=== PATIENT | male | born 1945 | race Caucasian/White ===

== ENCOUNTER → 2022-07-27 09:34 | Outpatient (CLI) | payer MEDICARE, SELFPAY ==
[2022-07-27 11:13] LABS: Add Manual Diff / Slide Review NO; Basophils Absolute Auto 100 /uL (0-100); Basophils Percent Auto 0.9 % (0-2); Eosinophils Absolute Auto 400 /uL (0-450); Eosinophils Percent Auto 6.8 % (2-4); Hematocrit 44.7 % (41-53); Hemoglobin 15.2 g/dL (13.5-17.5); Lymphocytes Absolute Auto 2000 /uL (1100-4500); Lymphocytes Percent Auto 30.7 % (25-40); Mean Corpuscular Hemoglobin 30.8 PG (26-34); Mean Corpuscular Volume 90.7 fL (80-100); Monocytes Absolute Auto 400 /uL (0-900); Monocytes Percent Auto 6.8 % (3-14); Neutrophils Absolute Auto 3600 /uL (1500-7000); Neutrophils Percent Auto 54.8 % (50-75); Platelet Count 231 X10^3/uL (150-400); Red Blood Cell Count 4.93 X10^6/uL (4.5-5.9); Red Cell Distribution Width 13.6 % (11.6-14.8); White Blood Cell Count 6.5 X10^3/uL (4.5-11.0)
[2022-07-27 11:18] LABS: Creatinine Urine Random 207.4 mg/dL
[2022-07-27 11:24] LABS: Microalbumi Creatinin Ratio Ur 4.8 ug/mg CR (<30)
[2022-07-27 11:37] LABS: Alanine Aminotransferase 25 IU/L (<50); Albumin 4.5 g/dL (3.5-5.0); Albumin Globulin Ratio 1.6 (1.0-2.8); Alkaline Phosphatase 97 U/L (38-126); Aspartate Aminotransferase 36 IU/L (17-59); Bilirubin Total 0.8 mg/dL (0.2-1.3); Blood Urea Nitrogen 15 mg/dL (9-20); Calcium 9.2 mg/dL (8.4-10.2); Carbon Dioxide 29 mmol/L (22-32); Chloride 100 mmol/L (98-107); Cholesterol 172 mg/dL (140-199); Estimated Glomerular Filt Rate > 60 mL/min (>60); Globulin 2.9 g/dL (1.7-4.1); Glucose 91 mg/dL (80-110); HDL Cholesterol 59 mg/dL (40-60); HEMOLYSIS < 15 (0-50); LDL Cholesterol Calculated 97 mg/dL (<100); Potassium 4.6 mmol/L (3.4-5.1); Sodium 140 mmol/L (137-145); Total Protein 7.4 g/dL (6.3-8.2); Triglycerides 80 mg/dL (35-150)
[2022-07-27 11:47] LABS: Vitamin D 25 Hydroxy (D3) 58.4 ng/mL (30.0-100.0)
[2022-07-27 12:02] LABS: Prostate Specific Antigen 1.08 ng/mL (0.10-4.00)
[2022-07-28 11:39] LABS: Triiodothyronine T3 Total 130 ng/dL (71-180)
== END ==
PROVIDERS: PCP Family Medicine; Referring Provider Family Medicine; Visit Provider Family Medicine
DX: Z13.220 Encounter for screening for lipoid disorders (principal); I10 Essential (primary) hypertension; N40.1 Benign prostatic hyperplasia with lower urinary tract symptoms; E05.90 Thyrotoxicosis, unspecified without thyrotoxic crisis or storm; Z79.899 Other long term (current) drug therapy; R00.1 Bradycardia, unspecified; R34 Anuria and oliguria
CPT/HCPCS: 36415; 80053; 80061; 82043; 82306; 82570; 84153; 84443; 84480; 85025

== ENCOUNTER 2022-12-04 10:31 | Day surgery (SDC) | payer MEDICARE, SELFPAY ==
--- NOTE | 2022-12-04 | PATH_ITS ---
[facility] Accession Number: [id number] No. of containers..04 Tissue . 01 Material submitted: . PART A: duodenum - DUODENUM BIOPSY PART B: pylorus - PYLORUS LESION BIOPSY PART C: esophagus, E-G Junction - GE JUNCTION BIOPSY PART D: colon - HEPATIC FLEXURE . 01 Clinical history: . B: R/O H. PYLORI . 01 Diagnosis: A. Duodenum, Biopsy: Duodenal mucosa with focal gastric heterotopia. Negative for intraepithelial lymphocytosis or villous blunting. Negative for dysplasia and malignancy. . B. Stomach, Pylorus Lesion, Biopsy: Acute erosive gastritis with reactive gastropathy. Negative for Helicobacter by immunohistochemistry. Negative for intestinal metaplasia. Negative for dysplasia and malignancy. . C. Gastroesophageal Junction, Biopsy: Squamocolumnar junctional mucosa with no diagnostic abnormality. Negative for intestinal metaplasia. Negative for dysplasia and malignancy. . D. Hepatic Flexure, Biopsy: Tubular adenoma. [facility] 12/10/2022 1645 Local . 01 Electronically signed: . Breanna Rodriguez MD, Pathologist NPI- [id number] . 01 Gross description: . Part A: DUODENUM BIOPSY: Received in formalin is 1 fragment(s) of muhammad, soft tissue measuring 0.2 x 0.2 x 0.1 cm submitted entirely in 1 cassette(s) Part B: PYLORUS LESION BIOPSY: Received in formalin is 1 fragment(s) of muhammad, soft tissue measuring 0.6 x 0.2 x 0.1 cm submitted entirely in 1 cassette(s) Part C: GE JUNCTION BIOPSY: Received in formalin is 1 fragment(s) of muhammad, soft tissue measuring 0.3 x 0.1 x 0.1 cm submitted entirely in 1 cassette(s) Part D: HEPATIC FLEXURE: Received in formalin is 1 fragment(s) of muhammad, soft tissue measuring 0.3 x 0.3 x 0.1 cm submitted entirely in 1 cassette(s) /CPE 12/05/2022 1124 Local . 01 Microscopic: . B. An immunohistochemical stain was performed to evaluate for Helicobacter organisms and is negative. The control stain showed appropriate reactivity. . C. An AB/PAS stain is performed to evaluate for intestinal metaplasia and is negative. The control stain showed appropriate reactivity. . * This test was developed and its performance characteristics determined by [employer]. It has not been cleared or approved by the U.S. Food and Drug Administration. The FDA has determined that such clearance or approval is not necessary. This test is used for clinical purposes. It should not be regarded as investigational or for research. . 01 Pathologist provided ICD-10: D12.3, Z12.11, K20.90 . 01 CPT . 141574, 610679, 213594, 138359, V57250, 835796 Specimen Comment: A courtesy copy of this report has been sent to [facility] Pathology Performed at: 01 [facility] [address] [place] [address], [place], [place] [id number] MD Yamil Moreno MD Phone: [phone]
[2022-12-04 11:08] VITALS: BMI 20.7
[2022-12-04 11:12] VITALS: BP 136/86; PULSE 87; RESP 16; TEMP 36.9; O2SAT 98
[2022-12-04] MEDS: FLEETS ENEMA 1 EACH PR (11:17)
--- NOTE | 2022-12-04 11:22 | SUR.PREOP ---
Enema given to patient without difficulty. Brown liquid output noted.
[2022-12-04] MEDS: LACTATED RINGERS 1,000 ML 42 ML IV (11:28)
--- NOTE | 2022-12-04 11:44 | PM.PREOP ---
Pre-operative Note Interval Note History & Physical reviewed/Exam performed by Physician: Yes Changes to H&P: No
[2022-12-04 12:50] VITALS: BP 111/76; PULSE 64; RESP 18; TEMP 36.6; O2SAT 98
[2022-12-04 12:57] VITALS: BP 107/79; PULSE 74; RESP 22; O2SAT 99
[2022-12-04 13:01] VITALS: BP 126/91; PULSE 78; RESP 24; O2SAT 100
--- NOTE | 2022-12-04 13:01 | P.OP.EGD&C_ITS ---
Operative Date/Time/Diagnoses Date of procedure: 12/04/22 Pre-op diagnosis: Colon cancer screening, esophagitis seen on CT Procedure & Clinicians Study performed: 1. EGD and biopsies 2. Colonoscopy and biopsies Same procedure as scheduled: Yes Indications: Colon cancer screening and follow-up esophagitis seen on CT scan Surgeon: Keyonna Chandra Procedure Notes Procedure in detail: Patient was taken to the endoscopy suite and placed supine position. A time-out was performed. And conscious sedation was induced with the help of anesthesiologist. A bite block was placed and an EGD scope was placed in through the mouth and easily entered into the esophagus. It was then advanced down into the stomach. There was evidence of gastritis within the stomach and streaking lines of inflammation in the pylorus as well. The pylorus was entered and the duodenum was investigated. Photograph was taken and there seemed to be some inflammation there as well a biopsy was taken of the duodenum. Then the scope was retracted and the pylorus was examined again photograph was taken. There were some small dark punctate areas which appeared to be pyloric ulcers. Biopsy was obtained. Scope was then retroflexed and a photograph was taken the GE junction looked normal from a low. The scope was then withdrawn back into the esophagus and the GE junction was seen to have a circumferential creeping of salmon-colored mucosa around the base of the esophagus. It was at least a cm in size maybe up to 2 cm. This area was biopsied. The scope was then further withdrawn patient tolerated the procedure well. Focus was then placed on the colonoscopy. Digital rectal exam showed no masses or strictures. The colonoscope was introduced into the anal canal and advanced through to the cecum. Photograph of the appendiceal orifice was obtained. The withdrawal of the scope was then commenced and in total took 19 minutes at the hepatic flexure a small polyp was seen and removed. In the sigmoid colon there were large cavernous diverticula throughout. There was few scattered diverticula on the right side of the colon as well. Some photographs were taken of diverticula. Prep was poor: [place] bowel prep score of 1. Some photographs of solid stool material were obtained. Patient tolerated the procedure well and went in good condition to the postoperative care unit. Specimen(s): other (1. Duodenum biopsy 2. Pyloric lesion rule out H pylori 3. GE junction biopsy 4. Hepatic flexure polyp ) Complications: none Post-procedure Plan for aftercare: Plan for follow-up colonoscopy will be between 5-10 years. I think some consideration should be taken of the quality of the prep here which would favor earlier follow-up. Also I started Protonix and recommended daily fiber supplementation.
== END 2022-12-04 13:22 | disposition home or self-care (01) ==
PROVIDERS: PCP Family Medicine; Referring Provider Surgery; Visit Provider Surgery
PROC: 0DJ08ZZ Inspection of Upper Intestinal Tract, Via Natural or Artificial Opening Endoscopic (ICD-10-PCS; CPT 43235; principal; 2022-12-04 11:45)
PROC: 0DJD8ZZ Inspection of Lower Intestinal Tract, Via Natural or Artificial Opening Endoscopic (ICD-10-PCS; CPT 45378; 2022-12-04 11:45)
DX: Z12.11 Encounter for screening for malignant neoplasm of colon (principal); K20.90 Esophagitis, unspecified without bleeding; K57.30 Diverticulosis of large intestine without perforation or abscess without bleeding; Z95.0 Presence of cardiac pacemaker; D12.3 Benign neoplasm of transverse colon; K25.3 Acute gastric ulcer without hemorrhage or perforation; K31.9 Disease of stomach and duodenum, unspecified; Q43.8 Other specified congenital malformations of intestine
CPT/HCPCS: 45380; 43239; J2704

== ENCOUNTER → 2022-12-07 09:10 | Outpatient (CLI) | payer MEDICARE, SELFPAY ==
[2022-12-07 09:50] LABS: Add Manual Diff / Slide Review NO; Basophils Absolute Auto 100 /uL (0-100); Basophils Percent Auto 1.3 % (0-2); Eosinophils Absolute Auto 500 /uL (0-450); Eosinophils Percent Auto 7.9 % (2-4); Hematocrit 43.3 % (41-53); Hemoglobin 14.5 g/dL (13.5-17.5); Lymphocytes Absolute Auto 2100 /uL (1100-4500); Lymphocytes Percent Auto 33.8 % (25-40); Mean Corpuscular HGB Conc 33.4 % (30-36); Mean Corpuscular Hemoglobin 30.2 PG (26-34); Mean Corpuscular Volume 90.4 fL (80-100); Monocytes Absolute Auto 400 /uL (0-900); Monocytes Percent Auto 6.3 % (3-14); Neutrophils Absolute Auto 3100 /uL (1500-7000); Neutrophils Percent Auto 50.7 % (50-75); Platelet Count 213 X10^3/uL (150-400); Red Blood Cell Count 4.79 X10^6/uL (4.5-5.9); Red Cell Distribution Width 13.5 % (11.6-14.8); White Blood Cell Count 6.1 X10^3/uL (4.5-11.0)
[2022-12-07 10:13] LABS: Alanine Aminotransferase 29 IU/L (<50); Albumin 4.4 g/dL (3.5-5.0); Albumin Globulin Ratio 1.4 (1.0-2.8); Alkaline Phosphatase 75 U/L (38-126); Aspartate Aminotransferase 42 IU/L (17-59); BUN Creatinine Ratio 21.6 (6-22); Bilirubin Total 0.5 mg/dL (0.2-1.3); Blood Urea Nitrogen 16 mg/dL (9-20); Carbon Dioxide 31 mmol/L (22-32); Chloride 100 mmol/L (98-107); Cholesterol 218 mg/dL (140-199); Estimated Glomerular Filt Rate > 60 mL/min (>60); Globulin 3.1 g/dL (1.7-4.1); Glucose 83 mg/dL (80-110); HDL Cholesterol 62 mg/dL (40-60); HEMOLYSIS < 15 (0-50); LDL Cholesterol Calculated 132 mg/dL (<100); Potassium 4.5 mmol/L (3.4-5.1); Sodium 138 mmol/L (137-145); Total Protein 7.5 g/dL (6.3-8.2); Triglycerides 121 mg/dL (35-150)
[2022-12-07 10:22] LABS: Creatinine Urine Random 92.5 mg/dL
[2022-12-07 10:25] LABS: Microalbumin Urine Random < 0.6 mg/dL (0-1.6)
[2022-12-07 10:42] LABS: Prostate Specific Antigen 0.801 ng/mL (0.10-4.00)
[2022-12-07 10:52] LABS: TSH w/ Reflex to FT4 1.49 uIU/mL (0.47-4.68)
== END ==
PROVIDERS: PCP Family Medicine; Referring Provider Family Medicine; Visit Provider Family Medicine
DX: I10 Essential (primary) hypertension (principal); N40.1 Benign prostatic hyperplasia with lower urinary tract symptoms; E05.90 Thyrotoxicosis, unspecified without thyrotoxic crisis or storm; K56.609 Unspecified intestinal obstruction, unspecified as to partial versus complete obstruction
CPT/HCPCS: 36415; 80053; 80061; 82043; 82570; 84153; 84443; 85025

== ENCOUNTER → 2022-12-14 10:07 | Outpatient (CLI) | payer MEDICARE, SELFPAY ==
[2022-12-14 17:16] LABS: Free T3, Triiodothyronine Free 3.04 pg/mL (2.77-5.27); Free T4, Direct Thyroxine 1.42 ng/dL (0.78-2.19)
== END ==
PROVIDERS: PCP Family Medicine; Referring Provider Nurse Practitioner Family; Visit Provider Nurse Practitioner Family
DX: E05.90 Thyrotoxicosis, unspecified without thyrotoxic crisis or storm (principal)
CPT/HCPCS: 36415; 84439; 84481

== ENCOUNTER → 2023-02-23 11:05 | Outpatient (CLI) | payer MEDICARE, SELFPAY ==
--- NOTE | 2023-02-23 | DI.RAD.S_ITS ---
PROCEDURE: XR HIP W PEL IF DONE BILAT 2V INDICATIONS: Low back pain, unspecified TECHNIQUE: AP pelvis with lateral view(s) of the bilateral hip(s). COMPARISON: None. FINDINGS: Bones: No fractures or dislocations. Pelvic ring appears intact. No suspicious bony lesions. Periarticular osteophyte formation at the bilateral hip joints. Soft tissues: The visualized bowel gas pattern is normal. There are possible soft tissue calcifications within the proximal thigh adductors. IMPRESSION: 1. Bilateral hip osteoarthritis. 2. 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 This could be further assessed with CT, if clinically indicated. Dictated by: Adelso Cervantes M.D. on 02/23/2023 at 13:50 Approved by: Adelso Cervantes M.D. on 02/23/2023 at 13:50
--- NOTE | 2023-02-23 | DI.RAD.S_ITS ---
PROCEDURE: XR LUMBAR SPINE 2-3V INDICATIONS: Low back pain, unspecified TECHNIQUE: 3 views of the lumbar spine were acquired. COMPARISON: None. FINDINGS: Bones: 5 [id number] vertebrae are present. There is loss of normal lumbar lordosis. Moderate chronic appearing L1 compression fracture. Mild chronic appearing L3 compression fracture. Multilevel disc space narrowing and endplate osteophyte formation, as well as facet hypertrophy. No suspicious bony lesions. Soft tissues: Overlying bowel gas pattern is normal. No suspicious soft tissue calcifications. IMPRESSION: 1. Multilevel degenerative disc and facet disease. 2. Chronic appearing L1 and L3 compression fractures. 3. No definite acute fracture. No osseous lesion. If symptoms and/or clinical suspicion for pathology persist, further assessment with repeat, or advanced imaging (e.g., CT, MRI, or bone scan) may be helpful for further assessment. Dictated by: Adelso Cervantes M.D. on 02/23/2023 at 13:37 Approved by: Adelso Cervantes M.D. on 02/23/2023 at 13:38
--- NOTE | 2023-02-23 | DI.RAD.S_ITS ---
PROCEDURE: XR THORACIC SPINE 3V INDICATIONS: Low back pain, unspecified TECHNIQUE: 3 views of the thoracic spine were acquired. COMPARISON: [facility], CR, XR LUMBAR SPINE 2-3V, 02/23/2023, 11:21. FINDINGS: Bones: Moderate chronic appearing wedging at L1. No suspicious bony lesions. Multilevel disc space narrowing and endplate osteophyte formation. Visualized ribs are intact. Soft tissues: No paravertebral stripe thickening. IMPRESSION: 1. Moderate chronic appearing L1 compression fracture. 2. No definite acute fracture. No osseous lesion. If symptoms and/or clinical suspicion for pathology persist, further assessment with repeat, or advanced imaging (e.g., CT, MRI, or bone scan) may be helpful for further assessment. Dictated by: Adelso Cervantes M.D. on 02/23/2023 at 13:36 Approved by: Adelso Cervantes M.D. on 02/23/2023 at 13:37
== END ==
PROVIDERS: PCP Nurse Practitioner Family; Referring Provider Nurse Practitioner Family; Visit Provider Nurse Practitioner Family
DX: M51.36 Other intervertebral disc degeneration, lumbar region (principal); M47.896 Other spondylosis, lumbar region; M16.0 Bilateral primary osteoarthritis of hip; M48.56XA Collapsed vertebra, not elsewhere classified, lumbar region, initial encounter for fracture; M54.40 Lumbago with sciatica, unspecified side
CPT/HCPCS: 72072; 72100; 73521

== ENCOUNTER → 2023-03-01 12:03 | Outpatient (CLI) | payer MEDICARE, SELFPAY ==
--- NOTE | 2023-03-01 12:24 | DI.DEXA.S_ITS ---
Bone Density Report Name: NEIL HAWK Age: 77 Sex: Male Ethnicity: White Date of : 1945 Indication: screening for osteoporosis; Referring Provider: QUYNH COWAN Study: Bone densitometry was performed. Exam Date: March 01, 2023 Accession number: [id number] Bone Density: Region BMD T-score Z-score Classification AP Spine(L1-L4) 1.092 0.4 1.1 Normal Femoral Neck (Left) 0.592 -2.3 -1.1 Osteopenia Total Hip (Left) 0.712 -1.9 -1.2 Osteopenia Femoral Neck (Right) 0.614 -2.1 -0.9 Osteopenia Total Hip (Right) 0.703 -2.0 -1.3 Osteopenia Total Hip Mean 0.708 -2.0 -1.3 Osteopenia World Health Organization criteria for BMD impression classify patients as: Normal (T-score at or above -1.0), Osteopenia (T-score between -1.0 and -2.5), or Osteoporosis (T-score at or below -2.5). 10-year Fracture Risk(1): Major Osteoporotic Fracture 9.4% Hip Fracture 4.1% Reported Risk Factors: [place] (), Neck BMD=0.592, BMI=21.6 (1) FRAX(R) Version 3.08. Fracture probability calculated for an untreated patient. Fracture probability may be lower if the patient has received treatment. Impression: The patient has low bone mass, based on the Left Femoral Neck T-score. The patient has an estimated ten-year risk of hip fracture of 4.1% and an estimated ten-year risk of major fracture of 9.4%, based on the WHO FRAX algorithm. Discussion: BONE DENSITY IS LOW AT ONE OR MORE SKELETAL SITES. THE PATIENT'S BMD AND CLINICAL RISK FACTORS CONTRIBUTE TO THIS PATIENT'S INCREASED RISK OF FRACTURE. This patient's lowest T-score is low at one or more skeletal sites. It meets the World Health Organization's (WHO) criteria for ?low bone mass? (T-score between -1.0 and -2.5). The patient's 10-year risk of hip fracture as calculated by FRAX exceeds the threshold where pharmacological therapy is recommended by the National Osteoporosis Foundation (NOF). However, all treatment decisions require clinical judgment and consideration of individual patient factors, including patient preferences, comorbidities, previous drug use, risk factors not captured in the FRAX model (e.g., frailty, falls, vitamin D deficiency, increased bone turnover, interval significant decline in bone density) and possible under or overestimation of fracture risk by FRAX. The patient should follow a healthful lifestyle (good nutrition with adequate calcium and vitamin D, and appropriate weight-bearing exercise). Follow-Up: Consider repeating this study in 2 years to reassess this patient's status, or sooner if there is some new clinical indication. Reported by: DONTE MCLEOD M.D. on 03/01/2023 12:31:00 PM.
== END ==
PROVIDERS: PCP Nurse Practitioner Family; Referring Provider Nurse Practitioner Family; Visit Provider Nurse Practitioner Family
DX: Z13.820 Encounter for screening for osteoporosis; S32.000S Wedge compression fracture of unspecified lumbar vertebra, sequela; M85.852 Other specified disorders of bone density and structure, left thigh; Z85.828 Personal history of other malignant neoplasm of skin
CPT/HCPCS: 77080

== ENCOUNTER → 2023-03-08 09:20 | Outpatient (CLI) | payer MEDICARE, SELFPAY ==
[2023-03-08 13:02] LABS: Free T3, Triiodothyronine Free 4.22 pg/mL (2.77-5.27)
== END ==
PROVIDERS: PCP Nurse Practitioner Family; Referring Provider Nurse Practitioner; Visit Provider Nurse Practitioner
DX: E05.90 Thyrotoxicosis, unspecified without thyrotoxic crisis or storm (principal)
CPT/HCPCS: 36415; 84439; 84481

== ENCOUNTER → 2023-03-24 08:33 | Outpatient (CLI) | payer MEDICARE, SELFPAY ==
[2023-03-24 10:04] LABS: Alanine Aminotransferase 23 IU/L (<50); Albumin 4.3 g/dL (3.5-5.0); Albumin Globulin Ratio 1.5 (1.0-2.8); Alkaline Phosphatase 72 U/L (38-126); Aspartate Aminotransferase 33 IU/L (17-59); BUN Creatinine Ratio 29.3 (6-22); Bilirubin Total 0.5 mg/dL (0.2-1.3); Blood Urea Nitrogen 24 mg/dL (9-20); Calcium 9.2 mg/dL (8.4-10.2); Carbon Dioxide 31 mmol/L (22-32); Chloride 100 mmol/L (98-107); Estimated Glomerular Filt Rate > 60 mL/min (>60); Globulin 2.8 g/dL (1.7-4.1); Glucose 87 mg/dL (80-110); HEMOLYSIS < 15 (0-50); Potassium 4.5 mmol/L (3.4-5.1); Sodium 137 mmol/L (137-145); Total Protein 7.1 g/dL (6.3-8.2)
[2023-03-24 22:30] LABS: Cholesterol HDL Ratio 2.9 ratio (0.0-5.0); Cholesterol,Total 174 mg/dL (100-199); HDL Cholesterol 59 mg/dL (>39); LDL Cholesterol Cal 99 mg/dL (0-99); Triglycerides 86 mg/dL (0-149); VLDL Cholesterol Cal 16 mg/dL (5-40)
== END ==
PROVIDERS: PCP Nurse Practitioner Family; Referring Provider Nurse Practitioner Family; Visit Provider Nurse Practitioner Family
DX: E78.5 Hyperlipidemia, unspecified (principal)
CPT/HCPCS: 36415; 80053; 80061

== ENCOUNTER 2023-05-16 13:21 | Emergency (ER) | payer MEDICARE, SELFPAY ==
[2023-05-16 13:33] VITALS: BP 152/72; PULSE 68; RESP 12; TEMP 36.3; O2SAT 99; BMI 21.9
--- NOTE | 2023-05-16 13:48 | DI.US.S_ITS ---
PROCEDURE: US SCROTUM INDICATIONS: LEFT SCROTAL/INGUINAL PAIN TECHNIQUE: Real-time scanning was performed of the scrotum and testicles, with image documentation. Color and pulse Doppler interrogation was performed of both testicles. COMPARISON: None. FINDINGS: Right: Testicle is normal in size at 4.1 x 2.4 x 3.6 cm, and homogenous in echotexture. Epididymis is normal in overall size and morphology. There is a small right-sided hydrocele. Overlying scrotal skin is normal in thickness. Left: Testicle is normal in size at 3.7 x 3 x 3.5 cm, and homogeneous in echotexture. Epididymis is normal in overall size and morphology. There is a small left-sided hydrocele. Overlying scrotal skin is normal in thickness. Doppler: Color and pulse Doppler demonstrate normal and symmetric arterial flow in both testicles. Negative for varicocele on either side. Additional, dedicated ultrasound scanning is performed at the area of left inguinal region. No focal ultrasound abnormalities are seen within this region. IMPRESSION: Normal appearing testicles, without abnormal vascularity. Small bilateral hydroceles are seen. No significant abnormality the left inguinal region can be seen. Dictated by: Juan Kendall M.D. on 05/16/2023 at 14:07 Approved by: Juan Kendall M.D. on 05/16/2023 at 14:08
[2023-05-16 15:33] VITALS: BP 134/75; PULSE 61; RESP 17; O2SAT 98
--- NOTE | 2023-05-16 15:37 | ED_ITS ---
HPI - Male Genitourinary <Breanna Austin, FRANCHISE CONSULTANT - Last Filed: 05/16/23 17:04> General Chief complaint: Urogenital-Male Stated complaint: lt side groin pain Time Seen by Provider: 05/16/23 13:47 Source: patient Mode of arrival: Family Vehicle History of Present Illness HPI Narrative: This is a 77-year-old gentleman with history of memory issues and is brought in for evaluation with his for right-sided inguinal pain which started earlier today. Patient's asked patient if he needed to use the restroom so he walked up to try and void, states it was painful when he was voiding and so he stopped. They have come to the emergency department with concern for this pain. He reports that his pain has resolved now after his wait in the ED waiting room his denies any recent illness including fever chills, he reports feeling cold in the room currently. No vomiting, denies stool changes. Related Data Home Medications Medication Instructions Recorded Confirmed ascorbic acid (vitamin C) 1,000 mg 1 g PO DAILY 11/10/22 12/04/22 tablet aspirin 81 mg tablet,delayed 162 mg PO DAILY 11/10/22 12/04/22 release (Adult Aspirin Regimen) atorvastatin 10 mg tablet 10 mg PO DAILY 11/10/22 12/04/22 cholecalciferol (vitamin D3) 25 25 mcg PO DAILY 11/10/22 12/04/22 mcg (1,000 unit) capsule loratadine 10 mg tablet (Claritin) 10 mg PO DAILY 11/10/22 12/04/22 mecobalamin (vitamin B12) 1,000 1,000 mcg PO DAILY 11/10/22 12/04/22 mcg chewable tablet methimazole 5 mg tablet 2.5 mg PO DAILY 11/10/22 12/04/22 Previous Rx's Medication Instructions Recorded psyllium husk (with sugar) 3.4 1 tbsp PO BID #822 grams 12/04/22 gram/7 gram oral powder (Fiber (psyllium husk-sugar)) pantoprazole 40 mg tablet,delayed See Rx Instructions .Route 03/02/23 release .COMPLEX #90 tabs Allergies Allergy/AdvReac Type Severity Reaction Status Date / Time Penicillins Allergy Severe Airway Verified 05/16/23 13:38 swells Review of Systems <INGE Parson - Last Filed: 05/16/23 17:04> Review of Systems ROS Unobtainable: All systems reviewed & are unremarkable except as noted in HPI and below Patient History <INGE Parson - Last Filed: 05/16/23 17:04> Medical History Bowel obstruction Pacemaker Surgical History History of back surgery Hx of hernia repair Social History household members: spouse Smoking Status: Former smoker alcohol intake: never Smoking Status: Former smoker tobacco type: cigarettes alcohol intake frequency: 0-2 drinks per day Substance Use Type: does not use Exam <INGE Parson - Last Filed: 05/16/23 17:04> Narrative Exam Narrative: Reviewed vitals signs and nursing notes. General: Pleasant, sitting upright, in no acute distress, well groomed, afebrile HEENT: symmetrical facial expressions, moist mucous membranes, neck is supple CV: regular rate and rhythm, warm extremities Respiratory: normal work of breathing, without tachypnea or hypoxia. GI: abdomen soft, nondistended, without CVA tenderness bilaterally. No abdominal tenderness to palpation MSK: moves all extremities, no weakness, normal tone, ambulatory without deficit Skin: brisk capillary refill, without rash or wound Neuro: clear speech and normal cognition, A&O x2, memory loss at baseline, needs reminders Initial Vital Signs Initial Vital Signs: Vital Signs Temperature 97.3 F L 05/16/23 13:33 Pulse Rate 68 05/16/23 13:33 Respiratory Rate 12 05/16/23 13:33 Blood Pressure 152/72 H 05/16/23 13:33 Pulse Oximetry 99 05/16/23 13:33 Oxygen Delivery Method Room Air 05/16/23 13:33 <Yann Hogan DO - Last Filed: 05/16/23 18:50> Initial Vital Signs Initial Vital Signs: Vital Signs Temperature 97.3 F L 05/16/23 13:33 Pulse Rate 68 05/16/23 13:33 Respiratory Rate 12 05/16/23 13:33 Blood Pressure 152/72 H 05/16/23 13:33 Pulse Oximetry 99 05/16/23 13:33 Oxygen Delivery Method Room Air 05/16/23 13:33 Course <INGE Parson - Last Filed: 05/16/23 17:04> Orders Ordered: ED Orders 05/16/23 13:48 US scrotum Stat 05/16/23 15:42 Urine Microscopic Stat Vital Signs Vital signs: Vital Signs - 8 hr 05/16/23 13:33 05/16/23 15:33 Temperature 97.3 F L Pulse Rate 68 61 Respiratory Rate 12 17 Blood Pressure 152/72 H 134/75 Pulse Oximetry 99 98 Oxygen Delivery Method Room Air Room Air <Yann Hogan DO - Last Filed: 05/16/23 18:50> Orders Ordered: ED Orders 05/16/23 13:48 US scrotum Stat 05/16/23 15:42 Urine Microscopic Stat Vital Signs Vital signs: Vital Signs - 8 hr 05/16/23 13:33 05/16/23 15:33 Temperature 97.3 F L Pulse Rate 68 61 Respiratory Rate 12 17 Blood Pressure 152/72 H 134/75 Pulse Oximetry 99 98 Oxygen Delivery Method Room Air Room Air MDM - Male Genitourinary <INGE Parson - Last Filed: 05/16/23 17:04> Lab Data Labs: Lab Results 05/16/23 Range/Units 15:42 Urine RBC 0-1/hpf (0-5/HPF) Urine WBC None seen (0-5/HPF) Ur Squamous Epith Cells None seen (0-5/HPF) Urine Bacteria None seen (None) Ur Culture Indicated? Cult not indicated Urine Dip Bedside Urine Glucose Negative Bedside Urine Bilirubin - Negative Bedside Urine Ketone - Negative Urine Specific [place] 1.020 Bedside Urine Occult Blood - Negative Bedside Urine pH 6.0 Bedside Urine Protein - Negative Bedside Urine Urobilinogen - Negative Bedside Urine Nitrite - Negative Bedside Urine Leukocytes - Negative Esterase Imaging Data US - CAMP ADVISOR: Radiologist's Impression: [address] [address] Ultrasound Report Signed Patient: Dawson Parker MR#: [id number] : 1945 Acct:[id number] Age/Sex: 77 / M Date of Service: 05/16/23 Loc: ED Accession Number: [id number] ?? Procedure: US scrotum Ordering Provider: Breanna Austin PROCEDURE:? US SCROTUM ? INDICATIONS:? LEFT SCROTAL/INGUINAL PAIN ? TECHNIQUE:? Real-time scanning was performed of the scrotum and testicles, with image documentation.? Color and pulse Doppler interrogation was performed of both testicles.? ? COMPARISON:? None. ? FINDINGS:? ? Right:? Testicle is normal in size at 4.1 x 2.4 x 3.6 cm, and homogenous in echotexture.? Epididymis is normal in overall size and morphology.? There is a small right- sided hydrocele.? Overlying scrotal skin is normal in thickness.? ? Left:? Testicle is normal in size at 3.7 x 3 x 3.5 cm, and homogeneous in echotexture.? Epididymis is normal in overall size and morphology.? There is a small left- sided hydrocele.? Overlying scrotal skin is normal in thickness.? ? Doppler:? Color and pulse Doppler demonstrate normal and symmetric arterial flow in both testicles.? Negative for varicocele on either side. ? Additional, dedicated ultrasound scanning is performed at the area of left inguinal region.? No focal ultrasound abnormalities are seen within this region.? ? ? IMPRESSION:? Normal appearing testicles, without abnormal vascularity. ? Small bilateral hydroceles are seen. ? No significant abnormality the left inguinal region can be seen. ? ? Dictated by: Juan Kendall M.D. on 05/16/2023 at 14:07 ? ? Approved by: Juan Kendall M.D. on 05/16/2023 at 14:08 ? MDM Narrative Medical decision making narrative: Chief Complaint: pain to rt groin Multiple etiologies for patient's complaint considered including, but not limited to: urinary tract infection, testicular torsion, nephrolithiasis, BPH, bladder spasm, muscle strain I have independently reviewed the patient's vital signs and nursing notes as well as prior records if available. Plan: Ultrasound of the scrotum is negative for acute abnormality with with small bilateral hydroceles Course of Care: Urine dip is negative for abnormality, urine microscopy does not show WBCs, bacteria or RBCs. Ultrasound is negative for acute abnormality. Patient was discharged without concerning finding. Encouraged to follow-up with PCP or return to the emergency department if pain returns. Social considerations that may affect disposition: none Questions are addressed and there is agreement with the plan and for follow-up. I consulted with the ED attending physician Dr. Hogan as needed for higher level of care considerations and they were available for discussion and recommendations regarding plan of care and diagnostic testing. Patient is appropriate for outpatient management. <Yann Hogan, DO - Last Filed: 05/16/23 18:50> Lab Data Labs: Lab Results 05/16/23 Range/Units 15:42 Urine RBC 0-1/hpf (0-5/HPF) Urine WBC None seen (0-5/HPF) Ur Squamous Epith Cells None seen (0-5/HPF) Urine Bacteria None seen (None) Ur Culture Indicated? Cult not indicated Urine Dip Bedside Urine Glucose Negative Bedside Urine Bilirubin - Negative Bedside Urine Ketone - Negative Urine Specific [place] 1.020 Bedside Urine Occult Blood - Negative Bedside Urine pH 6.0 Bedside Urine Protein - Negative Bedside Urine Urobilinogen - Negative Bedside Urine Nitrite - Negative Bedside Urine Leukocytes - Negative Esterase Discharge Plan Departure Patient Disposition: Home Clinical Impression: Right inguinal pain Activity Restrictions/Additional Instructions: *You have been diagnosed with right-sided groin pain. The ultrasound shows a normal scrotum without abnormality. The urine dip was negative, I will call you if urine microscope test shows infection but this is not as likely. Please follow-up with primary care or return to the emergency department for this pain if it comes back. Hopefully it does not return. Stay hydrated and drink plenty of fluids. *What to do: *Please continue to take your regular medications as directed. [ ] New medication prescriptions sent to your pharmacy: [ ] [ ] New medication written as a paper prescription [ x] No new medications given *Please call and schedule follow up with your primary care provider in 2-3 days, at least for an update. Let them know you were seen in the Emergency Department for the above problem. We will electronically transmit a record of today's note if your PCP or specialist is in our system. *If you do not have a primary care provider please contact [phone] to establish care with one of the [facility] primary care providers. *Return to the Emergency Department for worsening symptoms, inability to keep liquids down, fever greater than 101F, chills, or other concerning symptom. Prescriptions: No Action pantoprazole 40 mg tablet,delayed release (DR/EC) See Rx Instructions .ROUTE .COMPLEX Qty: 90 0RF Dose Instruction: TAKE 1 TABLET BY MOUTH DAILY Rx Instructions: TAKE 1 TABLET BY MOUTH DAILY methimazole 5 mg tablet 2.5 mg PO DAILY atorvastatin 10 mg tablet 10 mg PO DAILY aspirin [Adult Aspirin Regimen] 81 mg tablet,delayed release (DR/EC) 162 mg PO DAILY mecobalamin (vitamin B12) 1,000 mcg tablet,chewable 1,000 mcg PO DAILY cholecalciferol (vitamin D3) 25 mcg (1,000 unit) capsule 25 mcg PO DAILY ascorbic acid (vitamin C) 1,000 mg tablet 1 g PO DAILY loratadine [Claritin] 10 mg tablet 10 mg PO DAILY Fiber (psyllium husk-sugar) 3.4 gram/7 gram powder 1 tbsp PO BID Qty: 822 0RF Rx Instructions: available over the counter Referrals: Maddison De Jesus RN [Primary Care Provider] - Stand Alone Forms: Patient Portal/API <Yann Hogan DO - Last Filed: 05/16/23 18:50> Cosign ED Attending Maikelature Attestation: I was immediately available in the department for consultation. Documentation has been reviewed. I agree with assessment and plan.
[2023-05-16 16:20] LABS: Bacteria Urine None Seen; Culture Indicated Urine Cult Not Indicated; RBC Urine 0-1/HPF (0-5/HPF); Squamous Epithelial Cell Urine None Seen (0-5/HPF); WBC Urine None Seen (0-5/HPF)
== END 2023-05-16 15:52 | disposition home or self-care (01) ==
PROVIDERS: Emergency Provider Nurse Practitioner Critical Care Medicine; PCP Nurse Practitioner Family
DX: R10.30 Lower abdominal pain, unspecified (principal)
CPT/HCPCS: 76870; 81003; 81015; 99282

== ENCOUNTER → 2023-05-19 10:43 | Outpatient (CLI) | payer MEDICARE, SELFPAY ==
[2023-05-19 13:57] LABS: Free T3, Triiodothyronine Free 4.13 pg/mL (2.77-5.27); Free T4, Direct Thyroxine 1.13 ng/dL (0.78-2.19)
[2023-05-21 08:35] LABS: Thyrotropin Receptor AB 1.32 IU/L (0.00-1.75)
== END ==
PROVIDERS: PCP Nurse Practitioner Family; Referring Provider Nurse Practitioner; Visit Provider Nurse Practitioner
DX: E05.90 Thyrotoxicosis, unspecified without thyrotoxic crisis or storm (principal)
CPT/HCPCS: 36415; 83520; 84439; 84443; 84481

== ENCOUNTER → 2023-07-13 09:21 | Outpatient (CLI) | payer MEDICARE, SELFPAY ==
--- NOTE | 2023-07-13 | DI.NM.S_ITS ---
PROCEDURE: NM BONE SCAN WHOLE BODY RADIOPHARMACEUTICAL: 22 mCi Tc-99m MDP IV. INDICATIONS: Pain in left hip TECHNIQUE: Delayed whole-body scintigrams were obtained approximately 3-4 hours after intravenous injection of radiotracer. Anterior and posterior views were acquired from vertex to feet. Additional left and right oblique views of the pelvis were obtained. COMPARISON: [facility], MR, MR HIP LEFT WITHOUT CONTRAST, 06/29/2023, 12:59. [facility], MR, MR LUMBAR SPINE WITHOUT CONTRAST, 04/29/2023, 14:29. FINDINGS: No abnormal uptake of radiotracer is seen within the bones of the calvarium or bones of the face. No abnormal radiotracer uptake is seen within the cervical spine or the thoracic spine. Within the lumbar spine, there is focal uptake seen on the right at the L4 level. No abnormal uptake of radiotracer is seen within the sternum. No abnormal rib uptake is seen. A mild degree of symmetric uptake is seen within the region of the shoulders, which is attributed to degenerative change and is not considered to be pathologic. No abnormal uptake is seen within the upper extremities. In this patient with this given history, scrutiny is given to the hips. No abnormally increased uptake can be seen involving the hips. Scrutiny is also given to the left proximal femoral shaft at the site of the recent MRI abnormality. At this site, no abnormally increased uptake can be seen. No abnormal uptake is seen within the pelvis or within the lower extremities, with note made of degenerative change, most prominently within the right knee. No abnormal soft tissue uptake is seen. The kidneys demonstrate normal positions. IMPRESSION: No abnormal uptake is seen involving the hips. No abnormal increased uptake can be seen involving the left proximal femoral shaft at site of the recent MRI abnormality. This MRI visible lesion is considered to be Focal mild uptake can be seen involving the lumbar spine on the right at the approximate L4 level, which is likely related to degenerative change. Dictated by: Juan Kendall M.D. on 07/13/2023 at 13:15 Approved by: Juan Kendall M.D. on 07/13/2023 at 13:18
== END ==
PROVIDERS: PCP Nurse Practitioner Family; Referring Provider Orthopaedic Surgery; Visit Provider Orthopaedic Surgery
DX: M25.552 Pain in left hip (principal)
CPT/HCPCS: 78306; A9503

== ENCOUNTER → 2023-07-23 09:09 | Outpatient (CLI) | payer MEDICARE, SELFPAY ==
[2023-07-23 10:10] LABS: Add Manual Diff / Slide Review NO; Basophils Absolute Auto 100 /uL (0-100); Basophils Percent Auto 1.1 % (0-2); Eosinophils Absolute Auto 500 /uL (0-450); Eosinophils Percent Auto 7.4 % (2-4); Hematocrit 44.3 % (41-53); Hemoglobin 14.9 g/dL (13.5-17.5); Lymphocytes Absolute Auto 2000 /uL (1100-4500); Lymphocytes Percent Auto 30.1 % (25-40); Mean Corpuscular HGB Conc 33.7 % (30-36); Mean Corpuscular Hemoglobin 30.9 PG (26-34); Mean Corpuscular Volume 91.6 fL (80-100); Monocytes Absolute Auto 300 /uL (0-900); Monocytes Percent Auto 5.3 % (3-14); Neutrophils Absolute Auto 3600 /uL (1500-7000); Neutrophils Percent Auto 56.1 % (50-75); Platelet Count 222 X10^3/uL (150-400); Red Blood Cell Count 4.84 X10^6/uL (4.5-5.9); White Blood Cell Count 6.5 X10^3/uL (4.5-11.0)
[2023-07-23 10:26] LABS: Alanine Aminotransferase 30 IU/L (<50); Albumin 4.6 g/dL (3.5-5.0); Albumin Globulin Ratio 1.8 (1.0-2.8); Alkaline Phosphatase 66 U/L (38-126); Aspartate Aminotransferase 40 IU/L (17-59); BUN Creatinine Ratio 33.3 (6-22); Blood Urea Nitrogen 26 mg/dL (9-20); Calcium 9.9 mg/dL (8.4-10.2); Carbon Dioxide 29 mmol/L (22-32); Chloride 102 mmol/L (98-107); Estimated Glomerular Filt Rate > 60 mL/min (>60); Globulin 2.6 g/dL (1.7-4.1); Glucose 92 mg/dL (80-110); HEMOLYSIS < 15 (0-50); Potassium 4.8 mmol/L (3.4-5.1); Sodium 138 mmol/L (137-145); Total Protein 7.2 g/dL (6.3-8.2)
[2023-07-23 10:41] LABS: Free T4, Direct Thyroxine 1.01 ng/dL (0.78-2.19)
[2023-07-23 10:55] LABS: Thyroid Stimulating Hormone 2.41 uIU/mL (0.47-4.68)
[2023-07-24 15:10] LABS: Cholesterol HDL Ratio 2.6 ratio (0.0-5.0); Cholesterol,Total 185 mg/dL (100-199); HDL Cholesterol 72 mg/dL (>39); LDL Cholesterol Cal 93 mg/dL (0-99); Triglycerides 115 mg/dL (0-149); Triiodothyronine T3 Total 104 ng/dL (71-180); VLDL Cholesterol Cal 20 mg/dL (5-40)
== END ==
PROVIDERS: PCP Nurse Practitioner Family; Referring Provider Nurse Practitioner Family; Visit Provider Nurse Practitioner Family
DX: E78.5 Hyperlipidemia, unspecified (principal); R00.1 Bradycardia, unspecified; E05.90 Thyrotoxicosis, unspecified without thyrotoxic crisis or storm
CPT/HCPCS: 36415; 80053; 80061; 84439; 84443; 84480; 85025

== ENCOUNTER → 2023-09-15 12:49 | Outpatient (CLI) | payer MEDICARE, SELFPAY ==
[2023-09-15 14:19] LABS: BUN Creatinine Ratio 26.8 (6-22); Blood Urea Nitrogen 22 mg/dL (9-20); Calcium 9.9 mg/dL (8.4-10.2); Carbon Dioxide 31 mmol/L (22-32); Chloride 99 mmol/L (98-107); Estimated Glomerular Filt Rate > 60 mL/min (>60); Glucose 95 mg/dL (80-110); HEMOLYSIS < 15 (0-50); Potassium 4.3 mmol/L (3.4-5.1); Sodium 137 mmol/L (137-145)
== END ==
PROVIDERS: PCP Nurse Practitioner Family; Referring Provider Nurse Practitioner Family; Visit Provider Nurse Practitioner Family
DX: R10.30 Lower abdominal pain, unspecified (principal)
CPT/HCPCS: 36415; 80048

== ENCOUNTER → 2023-09-16 10:17 | Outpatient (CLI) | payer MEDICARE, SELFPAY ==
--- NOTE | 2023-09-16 10:20 | DI.CT.S_ITS ---
PROCEDURE: CT ABDOMEN PELVIS W CON INDICATIONS: Lower abdominal pain TECHNIQUE: After the administration of intravenous contrast, axial sections acquired from the lung bases to the pubic symphysis. Coronal and sagittal reformats were performed. For radiation dose reduction, the following was used: automated exposure control, adjustment of mA and/or kV according to patient size. COMPARISON: None. FINDINGS: Image quality: Diagnostic. Lower Chest: Calcified medial right lower lobe pulmonary nodule. ABDOMEN: Liver: There is diffuse hypoattenuation of the liver parenchyma relative to the spleen compatible with hepatic steatosis. No suspicious hepatic lesion. Gallbladder: No radiopaque gallstones or wall thickening. Biliary ducts: No biliary dilation. Pancreas: No ductal dilation. Spleen: Size is within normal limits. Adrenal Glands: No adrenal nodules. Kidneys and Ureters: No hydronephrosis. No solid mass. No complex renal cystic lesion which requires follow up. Stomach and Bowel: Normal colonic caliber, without significant wall thickening. Moderate fecal burden seen throughout the colon. No acute inflammatory changes. The appendix is not definitively visualized. However, no secondary findings for acute appendicitis. Diverticulosis without acute diverticulitis. Peritoneum: No abnormal intraperitoneal fluid. No free air. Ventral Wall: No hernia. Abdominal Nodes: No retroperitoneal or mesenteric adenopathy by size criteria. Vessels: Aorta and inferior vena cava are normal in size. Moderate atherosclerotic vascular calcifications. PELVIS: Pelvic Organs: Unremarkable. Bladder: Urinary bladder thickness appears normal for degree of distention. No perivesicular inflammatory stranding. Pelvic Nodes: No enlarged lymph nodes. Miscellaneous: No inguinal hernias are seen. Bones: No aggressive osseous abnormality. Moderate multilevel spondylosis of the imaged spine. Age-indeterminate but likely chronic compression fractures of L1 and L3. Moderate degenerative changes of the bilateral hips. Chronic soft tissue calcifications noted at the bilateral ischial tuberosities likely sequela of chronic inflammation at the insertion site of the hamstrings. IMPRESSION: CT abdomen and pelvis without acute abnormalities to explain patient's left lower quadrant abdominal pain. Specifically, no evidence for hernias. Other chronic findings as above. Dictated by: Jordy Tolliver M.D. on 09/16/2023 at 16:43 Approved by: Jordy Tolliver M.D. on 09/16/2023 at 16:50
== END ==
PROVIDERS: PCP Nurse Practitioner Family; Referring Provider Nurse Practitioner Family; Visit Provider Nurse Practitioner Family
DX: K57.90 Diverticulosis of intestine, part unspecified, without perforation or abscess without bleeding (principal); R10.30 Lower abdominal pain, unspecified; R91.1 Solitary pulmonary nodule
CPT/HCPCS: 74177

== ENCOUNTER → 2024-01-25 09:44 | Outpatient (CLI) | payer MEDICARE, SELFPAY ==
[2024-01-25 11:18] LABS: Free T3, Triiodothyronine Free 4.27 pg/mL (2.77-5.27); Free T4, Direct Thyroxine 1.06 ng/dL (0.78-2.19)
[2024-01-25 11:32] LABS: Thyroid Stimulating Hormone 3.28 uIU/mL (0.47-4.68)
== END ==
LOC: LAB 09:46
PROVIDERS: PCP Nurse Practitioner Family; Referring Provider Nurse Practitioner; Visit Provider Nurse Practitioner
DX: E05.90 Thyrotoxicosis, unspecified without thyrotoxic crisis or storm (principal)
CPT/HCPCS: 36415; 84439; 84443; 84481